=== PATIENT | male | born 1990 | race Caucasian/White ===

== ENCOUNTER 2018-06-10 21:05 | Emergency (ER) | payer MEDICAID, OTHER ==
[2018-06-11] MEDS: HYDROCODONE/APAP (5/325) TAB PO (00:09)
[2018-06-11] MEDS: IBUPROFEN 600 MG TAB PO (00:09)
== END 2018-06-11 01:35 | disposition home or self-care (01) ==
LOC: FTE 21:05
DX: S89.91XA Unspecified injury of right lower leg, initial encounter (principal); W20.8XXA Other cause of strike by thrown, projected or falling object, initial encounter; Y92.9 Unspecified place or not applicable
CPT/HCPCS: 73590; 99283-25